=== PATIENT | female | born 1965 | race Caucasian/White ===

== ENCOUNTER 2022-02-22 11:11 | Emergency (ER) | payer OTHER, SELFPAY ==
--- NOTE | 2022-02-22 11:23 | DI.RAD.S_ITS ---
PROCEDURE: XR WRIST LT MIN 3V INDICATIONS: injury TECHNIQUE: 4 views of the wrist were acquired. COMPARISON: None. FINDINGS: Bones: Comminuted distal radial fracture extends into the radiocarpal joint space is angulated dorsally Soft tissues: No suspicious soft tissue calcifications. IMPRESSION: Dorsally angulated comminuted intra-articular fracture of the distal radius Approved by: Alex Aiken M.D. on 02/22/2022 at 11:23
[2022-02-22 11:59] VITALS: BP 183/96; PULSE 62; RESP 18; TEMP 36.6; O2SAT 100; BMI 23.3
[2022-02-22 15:31] VITALS: BP 165/96; PULSE 66; TEMP 36.6; O2SAT 98
[2022-02-22] MEDS: HYDROCODONE/ACET 5/325 TABLET 2 TAB PO (16:30)
--- NOTE | 2022-02-22 16:38 | ED.UPPEXIN ---
HPI - Extremity Injury (Upper) General Chief Complaint: Extremity Injury, Upper Stated Complaint: left wrist injury, possible fracture Time Seen by Provider: 02/22/22 16:10 Source: patient and family Mode of arrival: Family Vehicle History of Present Illness HPI narrative: Patient is a healthy 56-year-old female who presents with left wrist pain and injury. She says [place] Her a general surgeon did a make shift splint with slippers and skewors along with tape and [place]. She denies any other injury no elbow pain no head injury no loss of consciousness no neck pain numbness tingling or weakness. She is able to move her fingers but it does hurt quite a bit. Related Data Previous Rx's Medication Instructions Recorded hydrocodone 5 mg-acetaminophen 325 1 tab PO Q6H PRN pain #10 tabs 02/22/22 mg tablet Allergies Allergy/AdvReac Type Severity Reaction Status Date / Time No Known Drug Allergies Allergy Verified 02/22/22 11:59 Review of Systems Review of Systems ROS Unobtainable: All systems reviewed & are unremarkable except as noted in HPI and below Patient History Social History Smoking Status: Never smoker Smoking Status: Never smoker alcohol intake frequency: 0-2 drinks per day Substance Use Type: does not use Exam Initial Vital Signs Initial Vital Signs: Vital Signs Temperature 97.9 F 02/22/22 11:59 Pulse Rate 62 02/22/22 11:59 Respiratory Rate 18 02/22/22 11:59 Blood Pressure 183/96 H 02/22/22 11:59 Pulse Oximetry 100 02/22/22 11:59 Oxygen Delivery Method 02/22/22 11:59 GENERAL: Alert pleasant 56-year-old female CARDIOVASCULAR: peripheral pulses in tact, cap refill <2 sec RESPIRATORY: No respiratory distress, speaks in full sentences without difficulty EXTREMITIES: Normal range of motion, no clubbing or edema. Neurovascularly intact Left upper extremity swelling deformity noted distal radial pulse intact able to move fingers sensation radial median and ulnar nerve intact NEUROLOGICAL: Cranial nerves II through XII grossly intact. Normal gait and speech. SKIN: Warm, dry, no petechiae, no rashes or lesions. Procedures Nerve Block Nerve Block 1: Local Anesthetic: lidocaine 1% Amount of anesthesia used (mL): 10 Side: left Nerve Blocks: hematoma block Procedure Successful: Yes Patient Tolerated Procedure: Well and No complications Orthopedic Fracture Reduction Fracture #1: Time Out Performed: Yes Side: left Fracture Reduction Location: radius Analgesia: hematoma block Technique: direct manipulation and traction/counter-traction Post Reduction X-rays Demonstrate: acceptable reduction Post-reduction neuro exam: intact and no change Post-reduction vascular exam: intact and no change Splint Applied: Yes Orthopedic Splinting/Casting Injury #1: Side: left Upper Extremity Injury Location: wrist Upper Extremity Immobilizer: sling/shoulder immobilizer and sugar tong splint Post splinting neuro exam: intact Post splinting vascular exam: intact Placed by: Provider Course Orders Ordered: ED Orders 02/22/22 11:23 XR wrist LT min 3V Stat 02/22/22 16:56 XR wrist LT 2V Stat Discontinued Medications Hydrocodone Bitart/Acetaminophen (Hydrocodone/Acet 5/325 Tablet) 2 tab PO NOW ONE Stop: 02/22/22 16:18 Last Admin: 02/22/22 16:30 Dose: 2 tab Documented By: DB Hydrocodone Bitart/Acetaminophen (Hydrocodone/Acet 5/325 Prepack) 1 bottle MISC SEEINSTR ONE Stop: 02/22/22 16:57 Last Admin: 02/22/22 17:19 Dose: 1 bottle Documented By: DB Vital Signs Vital signs: Vital Signs - 8 hr 02/22/22 15:31 02/22/22 17:20 Temperature 97.8 F Pulse Rate 66 55 L Respiratory Rate 18 Blood Pressure 165/96 H 173/88 H Pulse Oximetry 98 100 Oxygen Delivery Method Room Air Room Air MDM - Extremity Injury (Upper) Imaging Data Extremity x-ray #1: Radiologist's Impression: XRay Report Signed Patient: Christina Oconnor MR#: [id number] : 1965 Acct:[id number] Age/Sex: 56 / F Date of Service: 02/22/22 Loc: ED Accession Number: [id number] ?? Procedure: XR wrist LT min 3V Ordering Provider: Indy Gould D.O. PROCEDURE:? XR WRIST LT MIN 3V ? INDICATIONS: injury ? TECHNIQUE:? 4 views of the wrist were acquired.? ? COMPARISON:? None. ? FINDINGS:? ? Bones:? Comminuted distal radial fracture extends into the radiocarpal joint space is angulated dorsally ? Soft tissues:? No suspicious soft tissue calcifications.? ? IMPRESSION:? ? Dorsally angulated comminuted intra-articular fracture of the distal radius ? ? ? Approved by: Alex Aiken M.D. on 02/22/2022 at 11:23? Extremity x-ray #2: Radiologist's Impression: tient: Christina Oconnor MR#: [id number] : 1965 Acct:[id number] Age/Sex: 56 / F Date of Service: 02/22/22 Loc: ED Accession Number: [id number] ?? Procedure: XR wrist LT 2V Ordering Provider: Indy Gould D.O. PROCEDURE:? XR WRIST LT 2V ? INDICATIONS: post reduction ? TECHNIQUE:? 2 views of the wrist were acquired.? ? COMPARISON:? [facility], CR, XR WRIST LT MIN 3V, 02/22/2022, 11:34. ? FINDINGS:? ? Bones:? Reduced distal comminuted intra-articular radial fracture shows improved alignment of fracture fragments in overlying fiberglass splint. ? Soft tissues:? No suspicious soft tissue calcifications.? ? IMPRESSION:? Comminuted distal intra-articular radial fracture with fracture fragments in near anatomic alignment ? ? ? Approved by: Alex Aiken M.D. on 02/22/2022 at 16:43? [facility] Narrative Medical decision making narrative: Patient has an isolated left distal radius fracture. Easily reduced in back in acceptable alignment. She is splinted given a disc and she will follow up in organ. Her is a general surgeon who will make sure that she has proper orthopedic follow-up Discharge Plan Departure Patient Disposition: Home Clinical Impression: Fracture of wrist Instructions: DI for Elbow Fracture Activity Restrictions/Additional Instructions: *You have been diagnosed with left wrist fracture *What to do: Keep arm in sling and splint at all times. Please follow-up with orthopedics. May ice 20-30 minutes at a time *Continue to take medications as directed [place] 1-2 tabs every 6 hours if needed for severe pain *Follow up with your primary care provider in 2-3 days or call [phone] Please call orthopedics on Thursday to schedule follow-up appointment within 1 week *Return to ER if you should have increasing pain numbness tingling or weakness or any new, worsening or concerning symptoms CONTROLLED SUBSTANCE DISCHARGE (Narcotoic/benzodiazepine/Flexeril/Phenergan) 1. You have been prescribed narcotic medications, it does have acetaminophen/Tylenol/paracetamol in it, DO NOT TAKE MORE THAN 4,00mg in 24 hours of Tylenol. TRAMADOL DOES NOT CONTAIN TYLENOL 2. Please understand that we cannot provide further refills of narcotics, benzodiazepines or controlled substances through the ED and her pain management will need to be through your provider. 3. While on these medications you cannot drive or operate heavy machinery. 4. You cannot sign legal documents or perform any duties such as this. 5. As long as you're taking opiate pain medications he should also be taking a stool softener such as Colace, Dulcolax, MiraLAX or prune juice, to help avoid constipation. Prescriptions: New hydrocodone-acetaminophen 5-325 mg tablet 1 tab PO Q6H PRN (Reason: pain) Qty: 10 0RF
--- NOTE | 2022-02-22 16:56 | DI.RAD.S_ITS ---
PROCEDURE: XR WRIST LT 2V INDICATIONS: post reduction TECHNIQUE: 2 views of the wrist were acquired. COMPARISON: [facility], CR, XR WRIST LT MIN 3V, 02/22/2022, 11:34. FINDINGS: Bones: Reduced distal comminuted intra-articular radial fracture shows improved alignment of fracture fragments in overlying fiberglass splint. Soft tissues: No suspicious soft tissue calcifications. IMPRESSION: Comminuted distal intra-articular radial fracture with fracture fragments in near anatomic alignment Approved by: Alex Aiken M.D. on 02/22/2022 at 16:43
[2022-02-22] MEDS: HYDROCODONE/ACET 5/325 PREPACK 1 BOTTLE MISC (17:19)
[2022-02-22 17:20] VITALS: BP 173/88; PULSE 55; RESP 18; O2SAT 100
== END 2022-02-22 17:45 | disposition home or self-care (01) ==
PROVIDERS: Emergency Provider Emergency Medicine
DX: S52.502A Unspecified fracture of the lower end of left radius, initial encounter for closed fracture (principal); W01.0XXA Fall on same level from slipping, tripping and stumbling without subsequent striking against object, initial encounter
CPT/HCPCS: 25605; 64450; 73100; 73110; 99283; 99284